=== PATIENT | male | born 1970 | race Caucasian/White ===

== ENCOUNTER → 2017-12-12 17:41 | Outpatient (CLI) | payer OTHER, SELFPAY | PROVIDERS: Family Provider Family Medicine; PCP Family Medicine; Visit Provider Family Medicine | DX: N39.0 Urinary tract infection, site not specified (principal) | CPT/HCPCS: 87077; 87086; 87088 ==

== ENCOUNTER → 2018-05-15 17:15 | Outpatient (CLI) | payer OTHER, SELFPAY ==
[2017-05-09 14:30] VITALS: BMI 35.5
--- NOTE | 2018-05-15 17:18 | RAD_ITS ---
STUDY: X-RAY - LEFT KNEE REASON FOR EXAM: Male, 47 years old. Pain x2 months, no known injury TECHNIQUE: 4 view(s) of the knee. COMPARISON: None. FINDINGS: Normal visualized distal femur. Normal visualized proximal tibia and fibula. Normal proximal tibiofibular articulation. There is mild degenerative arthrosis of the medial femorotibial compartment. Normal lateral femorotibial compartment. Normal patellofemoral articulation. The soft tissue structures are unremarkable. RAD/Knee 4 or More Views IMPRESSION: Mild degenerative changes with joint space narrowing of the medial knee compartment. Electronically Signed: Shan Joseph MD at 23:53 EST , Service support ,
== END ==
LOC: MTRAD 17:16
PROVIDERS: Family Provider Family Medicine; PCP Family Medicine; Referring Provider Family Medicine; Visit Provider Family Medicine
DX: M70.52 Other bursitis of knee, left knee (principal)
CPT/HCPCS: 73564

== ENCOUNTER → 2018-05-31 10:56 | Outpatient (CLI) | payer OTHER, SELFPAY ==
--- NOTE | 2018-05-31 11:30 | MRI_ITS ---
STUDY: MRI LEFT KNEE REASON FOR EXAM: Male, 47 years old. Atraumatic knee pain for 3 months. TECHNIQUE: Standardized fat and water weighted pulse sequences were obtained in all 3 orthogonal planes. COMPARISON: X-rays of the dated May 15, 2018. FINDINGS: Normal medial meniscus. There is mild thinning of the articular cartilage of the medial femorotibial compartment (coronal series 7 images 12-18). There is bone marrow edema in the medial tibial plateau with low signal intensity linear subchondral lesion. These findings are compatible with an insufficiency fracture of the medial tibial plateau (sagittal series 5 images 5-17, coronal series 7 images 10-19). Normal medial collateral ligamentous complex (MCL). Normal distal semimembranosus, gracilis and semitendinosus tendons. Normal lateral meniscus. Normal hyaline cartilage of the lateral femorotibial compartment. Normal lateral femoral condyle and tibial plateau. Normal proximal tibiofibular articulation. Normal lateral collateral (fibular) ligament. Normal popliteus tendon. Normal biceps femoris tendon. Normal anterior cruciate ligament (ACL). Normal posterior cruciate ligament (PCL). Normal congruent patellofemoral articulation. There is mild thinning of the articular cartilage of the patellofemoral compartment (axial series 3 images 10-13). Normal medial and lateral patellar retinaculum. Normal quadriceps tendon. Normal patellar tendon. Normal Hoffa's fat pad. There is a small joint effusion with a small popliteal cyst (axial series 3 images 12-22). There is prepatellar subcutaneous soft tissue edema (sagittal series 5 image 14). The otherwise visualized osseous structures are unremarkable. MRI/Lower Ext Joint Only (Routine) IMPRESSION: Mild thinning of the articular cartilage of the medial and patellofemoral compartments. Insufficiency fracture of the medial tibial plateau as described. Prepatellar subcutaneous soft tissue edema. Small joint effusion with small popliteal cyst. Electronically Signed: Deven Anaya MD at 16:02 EST , Service support ,
--- OUTSIDE RECORDS SUMMARY | 2018-08-04 19:53 | XMS RPT_ITS ---
:1970 Author Organization [facility] Care Team Providers Name Role Phone Jaylon Snyder Attending Unavailable Jaylon Snyder Referring Unavailable Jaylon Snyder Primary Care Unavailable Jaylon Snyder Attending Unavailable Jaylon Snyder Referring Unavailable Jaylon Snyder Primary Care Unavailable Swapnil Rivera Attending Unavailable Jaylon Snyder Primary Care Unavailable Swapnil Rivera Referring Unavailable PROBLEMS PROBLEMS DATE TYPE CONDITION / ATTENDING STATUS SOURCE CODE 05/15/2018 Unknown M70.52 - Other Claudio, Active Joana bursitis of [facility] knee, left knee Hospital / Repository M70.52(ICD-10) 12/13/2017 Unknown N39.0 - Urinary Swapnil Rivera Active Joana tract Community infection, site Hospital not specified / Repository N39.0(ICD-10) PROCEDURES PROCEDURES No Procedure Records FoundRESULTS RESULTS LOWER EXT JOINT ONLY Observed: 05/31/2018 Status: F Source: JAONA (ROUTINE) 11:02 AM [facility] REPOSITORY [facility] Imaging Services [address] [place] [address] Lower Ext Joint Only (Routine) MR#: [id number] Acct: [id number] Name: DAMIEN BARRETT Rep #: [id number] : 1970 M 47 From: Deven Anaya MD PCP: Jaylon Snyder MD Status: REG CLI Study: Lower Ext Joint Only (Routine) Date of Exam: 05/31/18 Exam# [id number] Ordering Dr: Adria Snyder MD STUDY: MRI LEFT KNEE REASON FOR EXAM: Male, 47 years old. Atraumatic knee pain for 3 months. TECHNIQUE: Standardized fat and water weighted pulse sequences were obtained in all 3 orthogonal planes. COMPARISON: X-rays of the dated May 15, 2018. FINDINGS: Normal medial meniscus. There is mild thinning of the articular cartilage of the medial femorotibial compartment (coronal series 7 images 12-18). There is bone marrow edema in the medial tibial plateau with low signal intensity linear subchondral lesion. These findings are compatible with an insufficiency fracture of the medial tibial plateau (sagittal series 5 images 5-17, coronal series 7 images 10-19). Normal medial collateral ligamentous complex (MCL). Normal distal semimembranosus, gracilis and semitendinosus tendons. Normal lateral meniscus. Normal hyaline cartilage of the lateral femorotibial compartment. Normal lateral femoral condyle and tibial plateau. Normal proximal tibiofibular articulation. Normal lateral collateral (fibular) ligament. Normal popliteus tendon. Normal biceps femoris tendon. Normal anterior cruciate ligament (ACL). Normal posterior cruciate ligament (PCL). Normal congruent patellofemoral articulation. There is mild thinning of the articular cartilage of the patellofemoral compartment (axial series 3 images 10-13). Normal medial and lateral patellar retinaculum. Normal quadriceps tendon. Normal patellar tendon. Normal Hoffa's fat pad. There is a small joint effusion with a small popliteal cyst (axial series 3 images 12-22). There is prepatellar subcutaneous soft tissue edema (sagittal series 5 image 14). The otherwise visualized osseous structures are unremarkable. MRI/Lower Ext Joint Only (Routine) IMPRESSION: Mild thinning of the articular cartilage of the medial and patellofemoral compartments. Insufficiency fracture of the medial tibial plateau as described. Prepatellar subcutaneous soft tissue edema. Small joint effusion with small popliteal cyst. Electronically Signed: Deven Anaya MD at 16:02 EST , Service support , CC: Jaylon Snyder MD Upsetter: Signed KNEE 4 OR MORE Observed: 05/15/2018 Status: F Source: [place] VIEWS 5:18 PM [facility] REPOSITORY [facility] Imaging Services [address] [place] [id number] Knee 4 or More Views MR#: [id number] Acct: [id number] Name: DAMIEN BARRETT Rep #: [id number] : 1970 47 From: Shan Joseph MD PCP: Jaylon Snyder MD Status: REG CLI Study: Knee 4 or More Views Date of Exam: 05/15/18 Exam# [id number] Ordering Dr: Adria Snyder MD STUDY: X-RAY - LEFT KNEE REASON FOR EXAM: Male, 47 years old. Pain x2 months, no known injury TECHNIQUE: 4 view(s) of the knee. COMPARISON: None. FINDINGS: Normal visualized distal femur. Normal visualized proximal tibia and fibula. Normal proximal tibiofibular articulation. There is mild degenerative arthrosis of the medial femorotibial compartment. Normal lateral femorotibial compartment. Normal patellofemoral articulation. The soft tissue structures are unremarkable. RAD/Knee 4 or More Views IMPRESSION: Mild degenerative changes with joint space narrowing of the medial knee compartment. Electronically Signed: Shan Joseph MD at 23:53 EST , Service support , CC: Jaylon Snyder MD Upsetter: Signed Observed: 12/12/2017 Status: F Source: JOANA CULTURE, URINE 12:00 AM [facility] REPOSITORY Urine Culture Staphylococcus saprophyticus urine sensitivities are not recommended per CLSI guidelines. Treatment with Nitrofurantoin, Trimethoprim/Sulfa or a Fluroquinilone is suggested. ORGANISM 1: Staphylococcus saprophyticus [place] Count >100,000 Performed By: #### M100.0650 #### [facility] [address] [place], [address] ALLERGIES ALLERGIES DATE TYPE / CODE NAME / CODE REACTION SEVERITY SOURCE 05/09/2017 Drug No Known Unknown [facility] Allergy/4160 Allergies/F00 Hospital 01076(SNOMED [id number](RXNOR Repository CT) M) ENCOUNTERS ENCOUNTERS ADMIT/DISCHARGE ACCOUNT ADMITTING ENCOUNTER LOCATION SOURCE NUMBER CLASS 05/31/2018 [id number] Ambulatory [place] Shasta 9 [facility] ing:MRI Repository 05/15/2018 [id number] Ambulatory Joana Joana 5 [facility] ing:MTRAD Repository 12/12/2017 [id number] Ambulatory [place] Joana 4 [facility] ing:LABSPEC Repository PAYERS PAYERS ENCOUNTER GUARANTOR PAYER SUBSCRIBER SOURCE 05/31/2018 DAMIEN E Primary DAMIEN E Joana [id number] N Insurance:MUTUAL HOSMERDOB: [id number]: Repository [id number]: [phone] [id number] [phone] () Date:6511-26-79[address] [address], [place] [address]WR: 05/31/2018 Secondary NOT GIVENUNK Joana Insurance:SELF PAY [facility] Number: Effective Repository Date:2018-05-29 05/15/2018 DAMIEN E Primary DAMIEN E Joana [id number] N Insurance:MUTUAL HOSMERDOB: [facility] [id number]: Repository [id number]: 330 [id number] [phone] () Date:3559-24-59NA [address] [address], [place] [address]PY: 05/15/2018 Secondary NOT GIVENUNK Shasta Insurance:SELF PAY [facility] Number: Effective Repository Date:2018-05-15 12/12/2017 Damien Primary Damien Shasta [id number] N Insurance:MUTUAL HosmerDOB: [facility] [id number]HPP[place] Number: Repository [id number]: 330 [id number] [phone] () Date:8278-75-27AL [address] [address], [place] [address]BW: 12/12/2017 Secondary NOT GIVENUNK Joana Insurance:SELF PAY [facility] Number: Effective Repository Date:2017-12-12
== END ==
LOC: MRI 10:56
PROVIDERS: Family Provider Family Medicine; PCP Family Medicine; Referring Provider Family Medicine; Visit Provider Family Medicine
DX: M25.562 Pain in left knee (principal)
CPT/HCPCS: 73721

== ENCOUNTER → 2019-01-07 | Outpatient (CLI) | payer OTHER, SELFPAY ==
[2017-05-09 14:30] VITALS: BMI 35.5
== END | disposition home or self-care (01) ==
PROVIDERS: Family Provider Family Medicine; PCP Family Medicine; Referring Provider Family Medicine; Visit Provider Family Medicine
DX: R30.0 Dysuria (principal)
CPT/HCPCS: 87077; 87086; 87088; 87186

== ENCOUNTER → 2020-05-25 18:26 | Outpatient (CLI) | payer OTHER, SELFPAY ==
[2017-05-09 14:30] VITALS: BMI 35.5
== END ==
PROVIDERS: Visit Provider Family Medicine
DX: R31.9 Hematuria, unspecified (principal)
CPT/HCPCS: 87086; 87088

== ENCOUNTER → 2020-06-24 13:32 | Outpatient (CLI) | payer OTHER, SELFPAY ==
[2017-05-09 14:30] VITALS: BMI 35.5
--- NOTE | 2020-06-24 13:35 | CT_ITS ---
STUDY: CT ABDOMEN AND PELVIS WITH AND WITHOUT CONTRAST REASON FOR EXAM: Male, 49 years old. GROSS HEMATURIA X-COUPLE WEEKS, URINARY FREQUENCY RADIATION DOSAGE (If Supplied By Facility): CTDIvol = ( 24.15 ) mGy, DLP = ( 3590.49 ) mGycm TECHNIQUE: Transaxial images were obtained from the dome of the diaphragm to the symphysis pubis without oral contrast. IV 100mL Isovue-300 was administered. Sagittal and coronal images were reconstructed. Individualized dose optimization techniques were used for this CT. COMPARISON: None. FINDINGS: The visualized lung bases are unremarkable. The visualized portions of the heart are within normal limits. Normal liver. There is a solitary gallstone. Normal spleen. Normal pancreas. Normal bilateral adrenal glands. Normal right kidney. There is a cyst in the left kidney measures 1.2 cm. Normal visualized stomach. Normal small intestine. Normal colon. The appendix is visualized and appears normal. Normal abdominal aorta. Normal inferior vena cava. Normal retroperitoneum. Normal urinary bladder. There is a small umbilical hernia containing fat. Status post corpectomy of L1 and fusion T12-L2 in good alignment. Old compression fractures of L3 and L4. CT/CT Abd/Pelvis W/WO Contrast IMPRESSION: There is a solitary gallstone. There is a cyst in the left kidney measures 1.2 cm. Electronically Signed: Sandra Phoenix MD at 14:23 EST Tel , Service support ,
== END ==
LOC: CT 13:34
PROVIDERS: PCP Family Medicine; Visit Provider Nurse Practitioner Adult Health
DX: R31.0 Gross hematuria (principal)
CPT/HCPCS: 74178; Q9967